=== PATIENT | male | born 1950 | race Hispanic/Latino ===

== ENCOUNTER 2022-06-21 08:41 | Day surgery (SDC) | payer OTHER ==
[2022-06-18 08:58] LABS: BASOPHILS % (AUTO) 0.8 % (0.0-5.0); EOSINOPHILS % (AUTO) 2.5 % (0.0-8.0); HEMATOCRIT 43.2 % (42-54); LYMPHOCYTES % (AUTO) 29.1 % (21.0-51.0); MEAN CORPUSCULAR HEMOGLOBIN 32.7 pg (27.0-33.0); MEAN CORPUSCULAR HGB CONC 33.8 g/dL (32.0-36.0); MEAN CORPUSCULAR VOLUME 96.6 fL (79-99); NEUTROPHILS % (AUTO) 58.2 % (40.0-77.0); PLATELET COUNT (AUTO) 177 K/uL (130-400); RED BLOOD CELL COUNT(AUTO) 4.47 MIL/uL (4.50-6.20); WHITE BLOOD COUNT (AUTO) 4.8 K/uL (4.8-10.8)
[2022-06-18 09:11] LABS: CREATININE 0.9 mg/dL (0.5-1.5); POTASSIUM 4.3 mmol/L (3.5-5.1)
[2022-06-20 13:36] VITALS: BP 139/79
[2022-06-21] VITALS (10 sets, daily range): BP systolic 129–143; BP diastolic 67–80
[~2022-06-21] VITALS: Ht 188 cm; Wt 105.1 kg
[~2022-06-21 08:41] MED LIST: 0.9% NACL 500ML IV.SOLN 500 ML IV SCH; CEFAZOLIN SODIUM 1 GM VIAL IVP SCH
[2022-06-21] MEDS ORDERED: LACTATED RINGERS 1000ML 1,000 ML IV ONE (08:51)
[2022-06-21] MEDS ORDERED: vit b12 PO (09:11)
[2022-06-21] MEDS ORDERED: EYE LUBRICANT OU (09:11)
[2022-06-21] MEDS ORDERED: areds PO (09:11)
[2022-06-21] MEDS ORDERED: FAMOTIDINE 20MG VIAL IV ONE (12:27)
[2022-06-21] MEDS ORDERED: MIDAZOLAM HCL 1 MG/ML 2ML VIAL ONE (12:33)
[2022-06-21] MEDS ORDERED: PROPOFOL 10 MG/ML 20ML VIAL IV ONE (12:33)
[2022-06-21] MEDS ORDERED: FENTANYL CITRATE PF 50 MCG/1 ML 2ML VIAL ONE (12:33)
[2022-06-21] MEDS ORDERED: CEFAZOLIN SODIUM 2 GM VIAL IV ONE (12:34)
[2022-06-21] MEDS ORDERED: LIDOCAINE HCL MDV 0.5% 50ML VIAL IJ ONE (12:36)
[2022-06-21] MEDS ORDERED: BUPIVACAINE/PF 0.5% 30ML VIAL ONE (12:36)
[2022-06-21] MEDS ORDERED: ONDANSETRON 4MG INJ ONE (12:42)
[2022-06-21] MEDS ORDERED: BUPIVACAINE/PF 0.5% 30ML VIAL INJ ONE (12:57)
[2022-06-21] MEDS ORDERED: LIDOCAINE HCL-MPF 0.5% 50ML VIAL IJ ONE (12:57)
== END 2022-06-21 14:43 | disposition home or self-care (01) ==
LOC: DAH 08:41
PROVIDERS: ATTEND Surgery
DX: L72.3 Sebaceous cyst (principal); L72.0 Epidermal cyst; F17.210 Nicotine dependence, cigarettes, uncomplicated; Z79.01 Long term (current) use of anticoagulants; Z82.49 Family history of ischemic heart disease and other diseases of the circulatory system; Z80.9 Family history of malignant neoplasm, unspecified
CPT/HCPCS: 71045; 87426; 80048; 85025; 36415; 93005; 11406; A6260; A4663; J7030; A4452; J0690 ×2; J7120; J3490 ×5; J3010; J2250; J2704; J2405; A4930; A4215; A4223; A4222; A4221; A4600